=== PATIENT | female | born 1985 | race African-American/Black ===

== ENCOUNTER 2018-04-15 06:27 | Day surgery (SDC) | payer MEDICAID ==
[~2018-04-15] VITALS: Ht 167.6 cm; Wt 131.1 kg
--- NOTE | ~2018-04-15 | OP ---
PATIENT NAME: JOHN BROWN MEDICAL RECORD: [id number] :87 LOCATION:D.OPS ADMISSION DATE: SURGEON: GUANAKITO CEDENO MD DATE OF OPERATION: 04/15/2018 PREOPERATIVE DIAGNOSES: 1. Left breast invasive ductal carcinoma. 2. Morbid obesity with a BMI of 44. POSTOPERATIVE DIAGNOSES: 1. Left breast invasive ductal carcinoma. 2. Morbid obesity with a BMI of 44. PROCEDURE: 1. Left subclavian vein PowerPort placement. 2. Fluoroscopic interpretation. SURGEON: Guanakito Cedeno MD REPORT OF PROCEDURE: The patient's left chest was prepped and draped in sterile fashion. A needle was used to cannulate the left subclavian vein and a guidewire was advanced with ease. A Fluoro was used to note that the wire was in good position in the venous system. A skin incision was then made on the left superior lateral chest and the subcutaneous pouch was made over the pectoral fascia. The catheter was tunneled between this pouch and the wire exit site. The port was then sutured to the pectoral fascia using interrupted 2-0 Prolenes times 2. The catheter was cut with a beveled tip at 25 cm. The dilator trocar device was placed over the wire and the wire and dilator were removed. The catheter tip was advanced through the trocar. The trocar was then removed and fluoroscopy showed that the catheter tip was resting in good position at the right atrial superior vena caval junction. The catheter aspirated nonpulsatile dark blood and flushed easily with heparinized saline. The subcutaneous tissues were irrigated out with normal saline and then reapproximated with interrupted 3-0 Vicryl. The skin was closed with running subcutaneous 5-0 Monocryl and dressed appropriately. COMPLICATIONS: None. CONDITION: Stable. ANESTHESIA: General endotracheal and local. BLOOD LOSS: Minimal. TRANSINT:[id number] Voice Confirmation ID: [id number] DOCUMENT ID: [id number] GUANAKITO CEDENO MD at 1228 CC: ELY RESENDEZ MD and ELY PORRAS [id number] DICTATION DATE: 04/15/18 0954 ENVELOPE CUTTER: 04/15/18 1123 [facility] [address] [place] [address]
[2018-04-15 06:42] LABS: BASOPHILS 0.4 % (0-2); EOSINOPHILS 3.8 % (0-7); HEMATOCRIT 34.6 % (36.0-48.0); HEMOGLOBIN 10.3 g/dL (12-16); IMMATURE GRANULOCYTES 0.3 % (0-5); LYMPHOCYTES 25.8 % (15-50); MCH 21.9 pg (26.0-34.0); MCHC 29.8 g/dL (31.0-37.0); MCV 73.6 fL (80.0-100.0); MEAN PLATELET VOLUME 10.8 fL (7.4-10.4); MONOCYTES 10.6 % (2-11); NEUTROPHILS 59.1 % (40-80); PLATELET COUNT 227 10x3/uL (130-400); RDW 16.7 % (11.5-14.5); WBC 7.1 10x3/uL (4.8-10.8)
[2018-04-15 07:00] LABS: APTT 27.5 SECONDS (22.8-39.4); INR 1.19 (0.85-1.17); PROTIME 14.6 SECONDS (11.6-15.0)
[2018-04-15 07:33] VITALS: BP 123/75; Ht 167.6 cm; Wt 131.1 kg
[2018-04-15 08:58] LABS: HCG URINE NEGATIVE (NEGATIVE)
[2018-04-15] MEDS ORDERED: HYDROCODONE-APA1 TAB PO (09:55)
== END 2018-04-15 13:35 | disposition home or self-care (01) ==
LOC: D.OPS 06:27 → D.PAN 09:15 → D.OPS 09:15
PROVIDERS: Anesthesiology; Surgery
DX: C50.912 Malignant neoplasm of unspecified site of left female breast (principal); E66.01 Morbid (severe) obesity due to excess calories; Z68.41 Body mass index [BMI] 40.0-44.9, adult; Z01.812 Encounter for preprocedural laboratory examination

== ENCOUNTER → 2018-11-25 09:55 | Outpatient (CLI) | payer MEDICAID ==
[2018-04-15 07:33] VITALS: BMI 46.7
[~2018-11-25 09:55] MED LIST: HYDROCODONE-APA1 TAB PO
== END | disposition home or self-care (01) ==
LOC: D.CT 11-24 15:30 → D.US 09:55 → D.CT 11:30
DX: C50.212 Malignant neoplasm of upper-inner quadrant of left female breast (principal)

== ENCOUNTER 2018-12-11 05:41 | Day surgery (SDC) | payer MEDICAID ==
[2018-12-10 16:01] LABS: BASOPHILS 0.4 % (0-2); EOSINOPHILS 3.1 % (0-7); HEMATOCRIT 42.3 % (36.0-48.0); HEMOGLOBIN 13.8 g/dL (12-16); IMMATURE GRANULOCYTES 0.3 % (0-5); LYMPHOCYTES 22.1 % (15-50); MCH 29.3 pg (26.0-34.0); MCHC 32.6 g/dL (31.0-37.0); MCV 89.8 fL (80.0-100.0); MEAN PLATELET VOLUME 10.9 fL (7.4-10.4); MONOCYTES 11.5 % (2-11); NEUTROPHILS 62.6 % (40-80); RBC 4.71 10x6/uL (4.00-5.40); RDW 13.5 % (11.5-14.5); WBC 7.8 10x3/uL (4.8-10.8)
[2018-12-10 16:08] LABS: PLATELET COUNT 151 10x3/uL (130-400)
[~2018-12-11] VITALS: Ht 172.7 cm; Wt 128.4 kg
[~2018-12-11 05:41] MED LIST changes: +DIPROLENE 0.05%60 M1 TOPICAL
[2018-12-11 06:53] VITALS: BP 144/66; Ht 172.7 cm; Wt 128.4 kg
[2018-12-11 07:13] LABS: HCG URINE NEGATIVE (NEGATIVE)
[2018-12-11] MEDS ORDERED: HYDROCODON-ACE1 EA10 PO (15:24)
--- NOTE | 2018-12-11 16:45 | NUR ---
REC'D FROM RR. FAMILY CURRENTLY NOT AT BEDSIDE. DRESSING CDI TO LEFT BREAST AND ARMPIT AREA. DROWSY BUT RESPONDS TO VERBAL STIMULI.
--- NOTE | 2018-12-11 16:50 | NUR ---
A BROUGHT TO PT. AND CHILDREN AT BEDSIDE.
--- NOTE | 2018-12-11 17:20 | NUR ---
FL TRAY BROUGHT TO PT. FAMILY NOT IN ROOM AT THIS TIME. ICE PACK BROUGHT TO PATEINT.
--- NOTE | 2018-12-11 18:05 | NUR ---
AMBULATED TO BATHROOM. VOIDED. HAD EPISODE OF N/V.
--- NOTE | 2018-12-11 18:37 | NUR ---
ZOFRAN 4MG IV ADMINISTERED. IV DC'D WITH CATHETER INTACT.
--- NOTE | 2018-12-11 18:50 | NUR ---
WRITTEN AND VERBAL DC INST GIVEN TO PT. ALONG WITH RX. VERBALIZED UNDERSTANDING .
--- NOTE | 2018-12-11 19:05 | NUR ---
DC'D HOME WITH FAMILY VIA PRIVATE VEHICLE. TAKEN TO VEHICLE VIA WC. STABLE AT TIME OF DC.
--- NOTE | 2018-12-25 09:41 | OP ---
PATIENT NAME: JOHN BROWN MEDICAL RECORD: [id number] :87 LOCATION:[facility] ADMISSION DATE: SURGEON: EDUARDO CEDENO MD DATE OF OPERATION: 12/11/2018 PREOPERATIVE DIAGNOSES: 1. Left breast cancer. 2. Morbid obesity with BMI of 43. POSTOPERATIVE DIAGNOSES: 3. Left breast cancer. 4. Morbid obesity with BMI of 43. PROCEDURE: Left breast lumpectomy with sentinel lymph node biopsy. SURGEON: Eduardo Cedeno MD BIG DATA SOFTWARE ENGINEER: Heidi Saucedo APRN REPORT OF OPERATION: The patient preoperatively had needle localization stereotactically done to the 3 lesions on the left lateral breast. Two wires were placed in order to facilitate this removal. The patient also underwent lymphoscintigraphy preoperatively. The patient's left breast and axilla were prepped and draped in sterile fashion. A large skin incision was made on the superior aspect of the left breast. Electrocautery was used to dissect through the subcutaneous tissues. We tunneled up towards the wire exit sites through the skin. We transected the wires down lower in order to facilitate pulling these through the skin into the open wound. We performed a large excision of a significant amount of tissue in the superior and upper outer quadrants of the patient's left breast. The wires remained intact during this procedure. We sent this specimen off for mammography and it showed that all 3 clips from the previous biopsies were in place and that the wires were intact. The wound was packed with a lap sponge. We then approached the patient's left axilla. An oblique incision was made overlying this inferior and anterior aspect of the axilla. Electrocautery was used to dissect through the subcutaneous tissues and fascia. Once we entered the axillary space, we were able to find a single lymph node with a reading of 4200. This lymph node was removed from the surrounding tissues using small clips and sent off for permanent specimen. We inspected the remainder of the axilla and found no readings appropriate for any further removal. This wound was irrigated out with sterile water and then closed in 2 layers with subcutaneous 3-0 Vicryl and running subcutaneous 5-0 Monocryl. A 10 mL of 0.25% Marcaine with epinephrine was infused into the surrounding tissues of this wound. We then went back to the patient's breast and inspected this open site. Any bleeding sources that were found were treated with electrocautery. We did find a few vessels, which were oversewn and tied off with 3-0 silks. The wound had no evidence of any bleeding at the conclusion of the case. We irrigated out this wound with sterile water. The subcutaneous tissues were then reapproximated with interrupted 3-0 Vicryl and the skin was closed with running subcutaneous 5-0 Monocryl. Another 10 mL of 0.25% Marcaine with epinephrine was infused into the surrounding tissues. The wound was dressed appropriately. COMPLICATIONS: None. CONDITION: Stable. OPERATIVE REPORT [id number] JOHN BROWN ANESTHESIA: General endotracheal and local. BLOOD LOSS: Minimal. TRANSINT:[id number] Voice Confirmation ID: [id number] DOCUMENT ID: [id number] EDUARDO CEDENO MD at 0941 CC: ELY RESENDEZ MD and ELY PORRAS [id number] DICTATION DATE: 12/11/18 1529 MELTER LOADER: 12/11/181919 [facility] 12/11/18 [facility] [address] [place] [address]
== END 2018-12-11 19:05 | disposition home or self-care (01) ==
LOC: D.OPS 05:41 → D.NM 08:00 → D.PAN 08:00 → D.OPS 19:05
PROVIDERS: Anesthesiology; Surgery
DX: C50.912 Malignant neoplasm of unspecified site of left female breast (principal); E66.01 Morbid (severe) obesity due to excess calories; Z68.41 Body mass index [BMI] 40.0-44.9, adult

== ENCOUNTER 2019-04-03 07:50 | Outpatient (CLI) | payer MEDICAID ==
[~2019-04-03] VITALS: Ht 170.2 cm; Wt 122.3 kg
[~2019-04-03 07:50] MED LIST changes: +HYDROCODON-ACE1 EA10 PO
[2019-04-03 08:43] LABS: BASOPHILS 0.1 % (0-2); EOSINOPHILS 1.7 % (0-7); HEMATOCRIT 27.7 % (36.0-48.0); HEMOGLOBIN 8.8 g/dL (12-16); IMMATURE GRANULOCYTES 0.3 % (0-5); LYMPHOCYTES 6.7 % (15-50); MCH 25.6 pg (26.0-34.0); MCHC 31.8 g/dL (31.0-37.0); MCV 80.5 fL (80.0-100.0); MEAN PLATELET VOLUME 8.7 fL (7.4-10.4); MONOCYTES 7.3 % (2-11); NEUTROPHILS 83.9 % (40-80); RBC 3.44 10x6/uL (4.00-5.40); RDW 15.1 % (11.5-14.5); WBC 8.9 10x3/uL (4.8-10.8)
[2019-04-03 08:48] LABS: PLATELET COUNT 393 10x3/uL (130-400)
[2019-04-03 09:02] LABS: ALBUMIN 2.2 g/dL (3.4-5.0); ANION GAP 10.9 mmol/L (8-16); BILIRUBIN - TOTAL 0.36 mg/dL (0.2-1.3); CALCIUM 9.4 mg/dL (8.5-10.1); CARBON DIOXIDE 28.6 mmol/L (21.0-32.0); CREATININE - SERUM 1.1 mg/dL (0.6-1.3); POTASSIUM - SERUM 3.5 mmol/L (3.5-5.1)
[2019-04-03 09:08] LABS: HCG SERUM NEGATIVE (NEGATIVE)
[2019-04-03 09:15] LABS: APTT 35.7 SECONDS (22.8-39.4); INR 1.42 (0.85-1.17); PROTIME 16.8 SECONDS (11.6-15.0)
[2019-04-03 09:31] VITALS: BP 132/69; Ht 170.2 cm; Wt 122.3 kg
== END 2019-04-03 11:50 | disposition home or self-care (01) ==
LOC: D.RAD 07:50 → D.SP 07:50 → D.RAD 08:30 → D.SP 11:50
PROVIDERS: Specialist; ATTEND Surgery
DX: N64.89 Other specified disorders of breast (principal)

== ENCOUNTER → 2019-06-03 18:50 | Outpatient (CLI) | payer MEDICAID ==
[2019-04-03 09:31] VITALS: BMI 42.2
== END | disposition home or self-care (01) ==
LOC: D.LABREF 18:50
PROVIDERS: ATTEND Surgery
DX: N61.0 Mastitis without abscess (principal); C50.212 Malignant neoplasm of upper-inner quadrant of left female breast

== ENCOUNTER 2019-10-07 09:00 | Outpatient (CLI) | payer MEDICAID ==
[2019-04-03 09:31] VITALS: BMI 42.2
== END 2019-10-07 10:00 | disposition home or self-care (01) ==
LOC: D.MAMMO 09:00
PROVIDERS: ATTEND Internal Medicine Medical Oncology
DX: C50.412 Malignant neoplasm of upper-outer quadrant of left female breast (principal); D70.1 Agranulocytosis secondary to cancer chemotherapy; Z51.11 Encounter for antineoplastic chemotherapy